=== PATIENT | female | born 1985 | race Caucasian/White ===

== ENCOUNTER → 2024-04-02 14:23 | Outpatient (CLI) | payer OTHER, SELFPAY ==
--- NOTE | 2024-04-02 14:26 | DI.MG.S_ITS ---
BILATERAL DIGITAL SCREENING MAMMOGRAM 3D/2D WITH CAD: 04/02/2024 CLINICAL: Routine screening. Family history of breast cancer. Comparison is made to exams dated: 06/04/2023 mammogram, 11/06/2022 mammogram, and 04/22/2019 mammogram - Outside facility. The breasts are heterogeneously dense, which may obscure small masses (category c / 51-75% glandular tissue). Current study was also evaluated with a Computer Aided Detection (CAD) system. No significant masses, calcifications, or other findings are seen in either breast. There has been no significant interval change. IMPRESSION: NEGATIVE There is no mammographic evidence of malignancy. A 1 year screening mammogram is recommended. Based on Tyrer-Cuzick model (a risk assessment model), the patient's lifetime risk is 23.4% and her 10 year risk is 2.9%. If a patient has an elevated risk, a more comprehensive evaluation should be considered and/or a referral to a genetic counselor. The [employer], [employer], and NCCN Guidelines advise the consideration of Breast MRI as an adjunct to screening mammography in patients whose Lifetime risk to develop breast cancer is 20% or higher. This exam was interpreted at Station ID: [id number]. NOTE: For mammograms, a report in lay terms will be sent to the patient. Approximately 15% of breast malignancies will not be visualized mammographically. In the management of a palpable breast mass, a negative mammogram must not discourage biopsy of a clinically suspicious lesion. Electronically Signed By: Dario carroll/[email or web address]:04/08/2024 18:56:41 letter sent: Normal Exam ACR BI-RADS Category 1: Negative
== END ==
PROVIDERS: PCP Family Medicine; Referring Provider Family Medicine; Visit Provider Family Medicine
DX: Z12.31 Encounter for screening mammogram for malignant neoplasm of breast (principal); Z80.3 Family history of malignant neoplasm of breast; R92.333 Mammographic heterogeneous density, bilateral breasts
CPT/HCPCS: 77063; 77067

== ENCOUNTER → 2024-08-18 08:41 | Outpatient (CLI) | payer OTHER, SELFPAY ==
--- NOTE | 2024-08-18 08:43 | DI.MRI.S_ITS ---
MR breast BI wo/w con: 08/18/2024. BI-RADS: 2 CLINICAL: 39-year old female for bilateral diagnostic breast MRI. No personal or first-degree family history of breast cancer. Current reported family history of breast cancer: maternal grandmother, paternal grandmother and paternal aunt. PRIOR EXAMS: MG 04/02/2024, 11/06/2022. MRI 05/24/2023. MRI TECHNIQUE Bilateral breast MRI was performed on a 1.5 Rita magnet using a dedicated breast coil with mild compression. Axial T1 and T2 STIR sequences were obtained. Dynamic contrast enhanced VIBRANT fat-suppressed sequences were obtained. Delayed sagittal high resolution or sagittal reconstructed isotropic sequence was also obtained. Subtraction images and maximum intensity projection images were obtained. The study was evaluated using [employer] software. Gadavist was injected intravenously: mL. IV Contrast: 20 ml ProHance. FIBROGLANDULAR TISSUE Bilateral: C. Heterogeneous fibroglandular tissue. BACKGROUND PARENCHYMAL ENHANCEMENT Bilateral: Moderate symmetrical background parenchymal enhancement. BREAST FINDINGS No abnormal lymph nodes are seen in the axilla. Bilateral: Benign-appearing cysts noted. There is no suspicious finding with benign findings noted. IMPRESSION: * No evidence of malignancy with benign findings. RECOMMENDATIONS Bilateral * According to the Tyrer-Cuzick Risk Assessment Model, based on the information provided your patient has a greater than 20% lifetime risk for developing breast cancer. Consider supplemental screening with breast MRI and participation in a high risk screening program. * Annual screening mammography. OVERALL ASSESSMENT CATEGORY BI-RADS-2: Benign. ELECTRONICALLY SIGNED: Aron Barrett M.D. on 08/19/2024 at 07:41:48 AM PT Interpreting Station ID: [id number]
== END ==
PROVIDERS: PCP Family Medicine; Referring Provider Family Medicine; Visit Provider Family Medicine
DX: R92.333 Mammographic heterogeneous density, bilateral breasts (principal); N60.01 Solitary cyst of right breast; N60.02 Solitary cyst of left breast; Z80.3 Family history of malignant neoplasm of breast
CPT/HCPCS: 77049; A9579